=== PATIENT | female | born 1955 | race Caucasian/White ===

== ENCOUNTER → 2016-11-28 | Day surgery (SDC) | payer OTHER | END | disposition home or self-care (01) | LOC: FAS 11:37 | DX: I87.2 Venous insufficiency (chronic) (peripheral) (principal); I10 Essential (primary) hypertension; F32.9 Major depressive disorder, single episode, unspecified; F17.210 Nicotine dependence, cigarettes, uncomplicated; M19.90 Unspecified osteoarthritis, unspecified site; J45.909 Unspecified asthma, uncomplicated; J44.9 Chronic obstructive pulmonary disease, unspecified; G35 Multiple sclerosis; C18.9 Malignant neoplasm of colon, unspecified; Z98.51 Tubal ligation status; Z90.49 Acquired absence of other specified parts of digestive tract; Z79.899 Other long term (current) drug therapy; Z98.890 Other specified postprocedural states | CPT/HCPCS: 71010; 76000; C1788; J1644; J2704 ==

== ENCOUNTER 2020-10-01 16:24 | Emergency (ER) | payer MEDICARE, OTHER ==
[~2020-10-01 16:24] MED LIST: ABILIFY5 MG PO; ASCORBIC ACID500 MG PO; CITALOPRAM HBR40 MG PO; NORCO 5-325 TA1 EACH PO; PROAIR HFA8.5 GM INH; TRAZODONE 100M100 MG PO
[2020-10-01 17:28] LABS: BASOPHIL 0.9 % (0-2); EOSINOPHIL 7.7 % (0-7); HCT 41.3 % (37.0-47.0); HGB 13.9 g/dl (12.5-16.0); LYMPHOCYTE 17.2 % (15-48); MCH 32.7 pg (25.0-31.0); MCHC 33.7 g/dL (32.0-36.0); MCV 97.2 fL (78.0-100.0); MONOCYTE 9.9 % (0-12); MPV 10.1 fL (6.0-9.5); NEUTROPHIL 64.1 % (41-80); NRBC 0; PLT 257 K/uL (150-400); RBC 4.25 M/uL (4.20-5.40); RDW 12.3 % (11.5-14.0); WBC 9.8 K/uL (4.0-10.5)
[2020-10-01 17:46] LABS: ALBUMIN 3.7 g/dL (3.4-5.0); BILIRUBIN - TOTAL 0.3 mg/dL (0.2-1.0); BUN/CREAT RATIO (CALC) 14.7 RATIO; CREATININE 1.09 mg/dL (0.51-0.95); GLOBULIN (CALCULATION) 2.8 g/dL; POTASSIUM 4.1 mmol/L (3.5-5.1); TOTAL PROTEIN 6.5 g/dL (6.4-8.2)
[2020-10-01 18:23] LABS: CORONAVIRUS 2019 SARS-COV-2 NEGATIVE (NEGATIVE); INFLUENZA A NAA NEGATIVE (NEGATIVE)
[2020-10-01 19:33] LABS: BILIRUBIN NEGATIVE (NEGATIVE); BLOOD TRACE-LYSED Ery/uL (NEGATIVE); CLARITY CLEAR (CLEAR); COLOR YELLOW (YELLOW); GLUCOSE (U) NORMAL (NORMAL); LEUKOCYTES 2+ Leu/uL (NEGATIVE); NITRITE NEGATIVE (NEGATIVE); PROTEIN NEGATIVE (NEGATIVE); SPECIFIC GRAVITY <=1.005 (1.001-1.030); UROBILINOGEN 0.2 mg/dL (0.2-1.0)
[2020-10-01] MEDS ORDERED: PREDNISONE 20MG20 MG PO (19:33)
[2020-10-01] MEDS ORDERED: AZITHROMYCIN250 MG PO (19:33)
[2020-10-01 19:40] LABS: BACTERIA TRACE; SQUAMOUS EPITHELIAL CELLS RARE; URINARY RBC RARE
== END 2020-10-01 20:00 | disposition home or self-care (01) ==
LOC: FER 16:24
PROVIDERS: Nurse Practitioner Family
DX: J18.9 Pneumonia, unspecified organism (principal); J44.9 Chronic obstructive pulmonary disease, unspecified; Z85.048 Personal history of other malignant neoplasm of rectum, rectosigmoid junction, and anus; Z87.891 Personal history of nicotine dependence; Z20.822 Contact with and (suspected) exposure to COVID-19
CPT/HCPCS: 36415; 36600; 71250; 80053; 81001; 82803; 84484; 85025; 87088; 93005; J2930; U0002

== ENCOUNTER → 2021-05-29 | Day surgery (SDC) | payer MEDICARE, OTHER ==
[~2021-05-29] VITALS: Ht 160 cm; Wt 75.3 kg
[~2021-05-29] MED LIST changes: +ATROVENT HFA12.9 GM; +AZITHROMYCIN250 MG PO; +B COMPLEX1 EACH PO; +BREO ELLIPTA 11 EACH; +CRANBERRY PO; +ECHINACEA PO; +LOVAZA1 GM PO; +MAGNESIUM PO; +PERCOCET 5-3251 EACH PO; +PREDNISONE 20MG20 MG PO; +PROBIOTIC1 EAC3 PO; +TIOTROPIUM; +VIT D3 PO; +ZINC PO; +[UNRECOGNIZED DRUG - OTHER] PO
== END | disposition home or self-care (01) ==
LOC: FAS 05-16 11:30
DX: C18.9 Malignant neoplasm of colon, unspecified (principal); C78.7 Secondary malignant neoplasm of liver and intrahepatic bile duct; J44.9 Chronic obstructive pulmonary disease, unspecified; F17.200 Nicotine dependence, unspecified, uncomplicated; Z79.899 Other long term (current) drug therapy; M19.90 Unspecified osteoarthritis, unspecified site; J45.909 Unspecified asthma, uncomplicated; I10 Essential (primary) hypertension; G35 Multiple sclerosis; Z85.038 Personal history of other malignant neoplasm of large intestine; Z90.49 Acquired absence of other specified parts of digestive tract; Z98.51 Tubal ligation status; Z80.0 Family history of malignant neoplasm of digestive organs
CPT/HCPCS: 71045; 76000; 93005; C1788; J0690; J1644; J2250; J2405; J2704; J3010; J7120

== ENCOUNTER 2021-10-16 12:03 | Emergency (ER) | payer MEDICARE, OTHER ==
[2021-10-16 13:19] LABS: BILIRUBIN NEGATIVE (NEGATIVE); BLOOD NEGATIVE Ery/uL (NEGATIVE); CLARITY CLEAR (CLEAR); COLOR YELLOW (YELLOW); GLUCOSE (U) NORMAL (NORMAL); LEUKOCYTES NEGATIVE Leu/uL (NEGATIVE); NITRITE NEGATIVE (NEGATIVE); PROTEIN NEGATIVE (NEGATIVE); SPECIFIC GRAVITY <=1.005 (1.001-1.030); UROBILINOGEN 0.2 mg/dL (0.2-1.0)
[2021-10-16 13:19] LABS: BASOPHIL 0.7 % (0-2); EOSINOPHIL 1.3 % (0-7); HCT 38.7 % (37.0-47.0); HGB 12.8 g/dl (12.5-16.0); LYMPHOCYTE 52.6 % (15-48); MCH 31.7 pg (25.0-31.0); MCHC 33.1 g/dL (32.0-36.0); MCV 95.8 fL (78.0-100.0); MONOCYTE 39.2 % (0-12); MPV 10.3 fL (6.0-9.5); NRBC 0; PLT 146 K/uL (150-400); RBC 4.04 M/uL (4.20-5.40); RDW 13.7 % (11.5-14.0); WBC 3.1 K/uL (4.0-10.5)
[2021-10-16 13:20] LABS: NEUTROPHIL 5.9 % (41-80)
[2021-10-16 13:27] LABS: ALBUMIN 3.6 g/dL (3.4-5.0); BILIRUBIN - TOTAL 0.3 mg/dL (0.2-1.0); BUN/CREAT RATIO (CALC) 16.7 RATIO; CREATININE 1.08 mg/dL (0.51-0.95); GLOBULIN (CALCULATION) 3.3 g/dL; TOTAL PROTEIN 6.9 g/dL (6.4-8.2)
[2021-10-16 17:16] LABS: CORONAVIRUS 2019 SARS-COV-2 NEGATIVE (NEGATIVE); INFLUENZA A NAA NEGATIVE (NEGATIVE)
[2021-10-16] MEDS ORDERED: VIBRAMYCIN100 MG PO (18:11)
[2021-10-16] MEDS ORDERED: PREDNISONE 20MG20 MG PO (18:11)
== END 2021-10-16 18:40 | disposition home or self-care (01) ==
LOC: FER 12:03
PROVIDERS: Emergency Medicine; Physician Assistant
DX: J44.0 Chronic obstructive pulmonary disease with (acute) lower respiratory infection (principal); J18.9 Pneumonia, unspecified organism; J06.9 Acute upper respiratory infection, unspecified; K42.9 Umbilical hernia without obstruction or gangrene; Z20.822 Contact with and (suspected) exposure to COVID-19; Z28.310 Unvaccinated for COVID-19
CPT/HCPCS: 36415; 71260; 80053; 81003; 82150; 83690; 85025; J2270; J2405; J7040; Q9967; U0002

== ENCOUNTER 2022-04-03 04:15 | Emergency (ER) | payer MEDICARE, OTHER ==
[~2022-04-03 04:15] MED LIST changes: +VIBRAMYCIN100 MG PO
[2022-04-03 05:10] LABS: BASOPHIL 0.7 % (0-2); EOSINOPHIL 4.5 % (0-7); HCT 40.3 % (37.0-47.0); HGB 13.6 g/dl (12.5-16.0); LYMPHOCYTE 7.3 % (15-48); MCH 30.8 pg (25.0-31.0); MCHC 33.7 g/dL (32.0-36.0); MCV 91.4 fL (78.0-100.0); MONOCYTE 11.7 % (0-12); MPV 9.2 fL (6.0-9.5); NEUTROPHIL 75.3 % (41-80); NRBC 0; PLT 115 K/uL (150-400); RBC 4.41 M/uL (4.20-5.40); RDW 14.6 % (11.5-14.0); WBC 5.8 K/uL (4.0-10.5)
[2022-04-03 05:26] LABS: ALBUMIN 3.3 g/dL (3.4-5.0); BILIRUBIN - TOTAL 0.3 mg/dL (0.2-1.0); BUN/CREAT RATIO (CALC) 10.2 RATIO; CREATININE 0.88 mg/dL (0.51-0.95); GLOBULIN (CALCULATION) 3.5 g/dL; POTASSIUM 4.2 mmol/L (3.5-5.1); TOTAL PROTEIN 6.8 g/dL (6.4-8.2)
[2022-04-03 05:45] LABS: CORONAVIRUS 2019 SARS-COV-2 NEGATIVE (NEGATIVE); INFLUENZA A NAA NEGATIVE (NEGATIVE)
[2022-04-03 07:10] LABS: BILIRUBIN NEGATIVE (NEGATIVE); BLOOD NEGATIVE Ery/uL (NEGATIVE); CLARITY CLEAR (CLEAR); COLOR YELLOW (YELLOW); GLUCOSE (U) NORMAL (NORMAL); LEUKOCYTES NEGATIVE Leu/uL (NEGATIVE); NITRITE NEGATIVE (NEGATIVE); PROTEIN NEGATIVE (NEGATIVE); SPECIFIC GRAVITY <=1.005 (1.001-1.030); UROBILINOGEN 0.2 mg/dL (0.2-1.0)
== END 2022-04-03 10:58 | disposition home or self-care (01) ==
LOC: FER 04:15
PROVIDERS: Emergency Medicine
DX: R42 Dizziness and giddiness (principal); R19.7 Diarrhea, unspecified; R11.2 Nausea with vomiting, unspecified; J44.9 Chronic obstructive pulmonary disease, unspecified; F17.200 Nicotine dependence, unspecified, uncomplicated; Z20.822 Contact with and (suspected) exposure to COVID-19; Z28.310 Unvaccinated for COVID-19
CPT/HCPCS: 36415; 70450; 70551; 71045; 80053; 81001; 84484; 85025; J1885; J2405; J7030; U0002